=== PATIENT | female | born 1980 | race Caucasian/White ===

== ENCOUNTER 2019-08-19 21:02 | Emergency (ER) | payer BC, OTHER ==
[2019-08-19 21:36] VITALS: BP 159/100; PULSE 113
[2019-08-19] MEDS ORDERED: Ketorolac 60 MG/2 ML SDV IM ONE (22:12)
--- NOTE | 2019-08-19 22:19 | EDM.PDOC ---
ED HPI GENERAL MEDICAL PROBLEM - General Chief Complaint: Lower Extremity Injury/Pain Stated Complaint: ANKLE INJURY Time Seen by Provider: 08/19/19 21:33 Source of Information: Reports: Patient, RN Notes Reviewed History Limitations: Reports: No Limitations - History of Present Illness INITIAL COMMENTS - FREE TEXT/NARRATIVE: Patient is a 38-year-old female who presents to the ED for the evaluation of her right ankle injury. Patient states she was trying to hang some lights, and stepped on a child's plastic stepstool, when the stool collapsed from underneath of her, and she thinks that she rolled her right ankle when the stool broke. She noted immediate pain into the lateral side of her right ankle with some swelling over the lateral malleolus. She denies any numbness or tingling into her toes, and states that dorsiflexing does hurt worse than plantar flexing. Patient denies pain into her foot, but states it is very painful in her ankle and she could not really weight-bear much at all prior to coming to the ER. She did not take any sort of pain management for this at home. She has not applied any sort of ice or anything as well. Patient denies any other sick-like symptoms, she did have a temperature of 100.5F at time of ER triage but the patient does have a sunburn on her face. 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: , 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 ED EXAM, GENERAL - Physical Exam Exam: See Below Exam Limited By: No Limitations General Appearance: Alert, WD/WN, No Apparent Distress Respiratory/Chest: No Respiratory Distress, Lungs Clear, Normal Breath Sounds, No Accessory Muscle Use, Chest Non-Tender Cardiovascular: Normal Peripheral Pulses, Regular Rate, Rhythm, No Murmur Peripheral Pulses: 3+: Dorsalis Pedis (L), Dorsalis Pedis (R) Extremities: Normal Capillary Refill, Joint Swelling (over lateral right ankle), Limited Range of Motion (of right ankle) Neurological: Alert, Oriented, Normal Cognition, No Motor/Sensory Deficits Psychiatric: Normal Affect, Normal Mood Skin Exam: Warm, Dry, Intact, Normal Color, No Rash Course - Vital Signs Last Recorded V/S: Last Vital Signs Temp 100.5 F 08/19/19 21:30 Pulse 113 H 08/19/19 21:30 Resp 18 08/19/19 21:30 BP 159/100 H 08/19/19 21:30 Pulse Ox 95 08/19/19 21:30 - Orders/Labs/Meds Orders: Active Orders 24 hr Category Date Time Status Ankle Min 3V Rt [CR] Stat Exams 08/19/19 21:40 Ordered Meds: Medications Discontinued Medications Generic Name Dose Route Start Last Admin Trade Name Viniciusq PRN Reason Stop Dose Admin Ketorolac Tromethamine 60 mg 08/19/19 22:12 Toradol IM 08/19/19 22:13 ONETIME ONE - Re-Assessments/Exams Free Text/Narrative Re-Assessment/Exam: 08/19/19 22:18 Patient presents to the ED for evaluation of her right ankle injury. X-rays were obtained at time of triage, demonstrate no bony abnormalities or acute fractures appreciated. Patient will have her ankle Theodore wrapped, she will be given a 60 mg IM injection of Toradol, and discharged home. Patient states that she has crutches at home and would prefer not to get crutches at today's visit. I did tell her she will likely have to follow-up in 10 days or so if the ankle is not healing as expected. Departure - Departure Time of Disposition: 22:19 Disposition: Home, Self-Care 01 Condition: Good Clinical Impression: Moderate right ankle sprain Qualifiers: Encounter type: initial encounter Qualified Code(s): S93.401A - Sprain of unspecified ligament of right ankle, initial encounter - Discharge Information *PRESCRIPTION DRUG MONITORING PROGRAM REVIEWED*: No *COPY OF PRESCRIPTION DRUG MONITORING REPORT IN PATIENT THAIS: No Instructions: Ankle Sprain, [id number] Referrals: Marlyn Benitez MD [Primary Care Provider] - Additional Instructions: You have been evaluated in the ED for your right ankle injury. Your x-ray demonstrated no acute fracture or other bony abnormality. Please use ice as tolerated to the affected area. Please try to elevate the affected area to relieve swelling. You may use crutches to walk, if this makes the ankle pain better. However you should start trying to walk on it as much as tolerated to try to get it to heal. You may take Tylenol 500 mg or ibuprofen 600mg q6 hrs for pain relief. Please do so until you have a tolerable level of pain with activity. Do not exceed 4000mg Tylenol or 3200mg ibuprofen in a 24 hour time period. Please return to ED if your symptoms should change or worsen. Sepsis Event Note (ED) - Evaluation Sepsis Screening Result: No Definite Risk - Focused Exam Vital Signs: Vital Signs Temp Pulse Resp BP Pulse Ox 08/19/19 21:30 100.5 F 113 H 18 159/100 H 95 - My Orders Last 24 Hours: My Active Orders 08/19/19 21:40 Ankle Min 3V Rt [CR] Stat - Assessment/Plan Last 24 Hours: My Active Orders 08/19/19 21:40 Ankle Min 3V Rt [CR] Stat
--- NOTE | 2019-08-20 06:57 | CR ---
Right ankle: 4 views of the right ankle were obtained. Comparison: No prior ankle exam. Ankle mortise is symmetric. No acute fracture, dislocation or other bony abnormality is appreciated. Impression: 1. No abnormality is appreciated on right ankle exam. Diagnostic code #1 Study was dictated in MDT
== END 2019-08-19 22:30 | disposition home or self-care (01) ==
LOC: JD.ED 21:02
DX: S93.401A Sprain of unspecified ligament of right ankle, initial encounter (principal); I10 Essential (primary) hypertension; F41.9 Anxiety disorder, unspecified; Z79.899 Other long term (current) drug therapy; W22.8XXA Striking against or struck by other objects, initial encounter
CPT/HCPCS: 73610-26-RT; 73610-RT; 99283; 99283-25

== ENCOUNTER 2019-11-25 11:32 | Emergency (ER) | payer OTHER ==
[2019-11-25 11:43] VITALS: BP 152/104; PULSE 125
[2019-11-25] MEDS ORDERED: Sodium Chloride 0.9% 10 ML Syringe FLUSH PRN (12:16)
[2019-11-25] MEDS ORDERED: Ondansetron 4 MG/2 ML SDV IVPUSH ONE (12:16)
[2019-11-25] MEDS ORDERED: Sodium Chloride 0.9% 1,000 ML IV STA (12:16)
--- NOTE | 2019-11-25 12:27 | EDM.PDOC ---
ED HPI GENERAL MEDICAL PROBLEM - General Chief Complaint: Gastrointestinal Problem Stated Complaint: SKAY/POSS DEHYDRATION Time Seen by Provider: 11/25/19 11:43 Source of Information: Reports: Patient History Limitations: Reports: No Limitations - History of Present Illness INITIAL COMMENTS - FREE TEXT/NARRATIVE: The patient presents with possible dehydration. She said this started last week with nausea, diarrhea, body aches, and now generalized weakness. She also has fever and chills. She does not have a cough. 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 She has no dysuria but she is not urinating as much. She does not have asthma. The patient did have strep a few weeks ago. Onset: Gradual Duration: Week(s): Severity: Moderate Improves with: Reports: None Worsens with: Reports: None Associated Symptoms: Reports: Fever/Chills, Nausea/Vomiting. Denies: Chest Pain, Cough, Headaches, Shortness of Breath - Related Data Allergies Allergy/AdvReac Type Severity Reaction Status Date / Time No Known Allergies Allergy Verified 11/25/19 11:43 Home Meds: Home Meds Sertraline HCl 1 tab PO DAILY 10/21/15 [History] Potassium Gluconate [Potassium] 1 tab PO DAILY 08/19/19 [History] hydroCHLOROthiazide [Hydrochlorothiazide] 1 tab PO DAILY 08/19/19 [History] Past Medical History Cardiovascular History: Reports: Hypertension Other Cardiovascular History: Essential HTN Gastrointestinal History: Reports: Hemorrhoids, Other (See Below) Other Gastrointestinal History: 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: Reports: , 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: Hx SAB Psychiatric History: Reports: Anxiety Other Psychiatric History: Takes Zoloft 25mg PO Qd for anxiety with positive results - Past Surgical History HEENT Surgical History: Reports: Oral Surgery Social & Family History - Family History Family Medical History: Noncontributory - Tobacco Use Smoking Status *Q: Never Smoker Second Hand Smoke Exposure: No - Caffeine Use Caffeine Use: Reports: Coffee - Recreational Drug Use Recreational Drug Use: No ED ROS GENERAL - Review of Systems Review Of Systems: See Below Constitutional: Reports: Fever, Chills, Malaise, Weakness, Fatigue HEENT: Reports: No Symptoms Respiratory: Reports: No Symptoms Cardiovascular: Reports: No Symptoms Endocrine: Reports: Fatigue GI/Abdominal: Reports: Nausea. Denies: Abdominal Pain, Vomiting : Reports: No Symptoms ED EXAM, GI/ABD - Physical Exam Exam: See Below Exam Limited By: No Limitations General Appearance: Alert, No Apparent Distress Ears: Normal External Exam Nose: Normal Inspection Head: Atraumatic, Normocephalic Neck: Normal Inspection Respiratory/Chest: No Respiratory Distress, Lungs Clear, Normal Breath Sounds Cardiovascular: Regular Rate, Rhythm, No Edema, No Murmur GI/Abdominal Exam: Soft, Non-Tender, No Organomegaly, No Mass Course - Vital Signs Last Recorded V/S: Last Vital Signs Temp 98.2 F 11/25/19 11:41 Pulse 125 H 11/25/19 11:41 Resp 20 11/25/19 11:41 BP 152/104 H 11/25/19 11:41 Pulse Ox 91 L 11/25/19 11:41 - Orders/Labs/Meds Orders: Active Orders 24 hr Category Date Time Status Peripheral IV Care [RC] . DIRECTED Care 11/25/19 12:16 Active Sodium Chloride 0.9% [Saline Flush] Med 11/25/19 12:16 Active 10 ml FLUSH ASDIRECTED PRN ED Antiemetic Medication Reflex [OM.PC] Stat Oth 11/25/19 12:16 Ordered Peripheral IV Insertion Adult [OM.PC] Stat Oth 11/25/19 12:16 Ordered Medication Orders Sodium Chloride (Saline Flush) 10 ml FLUSH ASDIRECTED PRN PRN Reason: Keep Vein Open Last Admin: 11/25/19 12:48 Dose: 10 ml Documented by: ANNE-MARIE Labs: Laboratory Tests 11/25/19 11/25/19 11/25/19 Range/Units 12:50 12:50 12:50 WBC 3.45 L (3.98-10.04) K/mm3 RBC 4.63 (3.98-5.22) M/mm3 Hgb 12.5 D (11.2-15.7) gm/dl Hct 41.7 (34.1-44.9) % MCV 90.1 D (79.4-94.8) fl MCH 27.0 (25.6-32.2) pg MCHC 30.0 L (32.2-35.5) g/dl RDW Std Deviation 47.2 H (36.4-46.3) fL Plt Count 412 H D (182-369) K/mm3 MPV 9.4 (9.4-12.3) fl Neut % (Auto) 75.1 H (34.0-71.1) % Lymph % (Auto) 16.2 L (19.3-51.7) % [place] % (Auto) 8.1 (4.7-12.5) % Eos % (Auto) 0 L (0.7-5.8) Baso % (Auto) 0.3 (0.1-1.2) % Neut # (Auto) 2.59 (1.56-6.13) K/mm3 Lymph # (Auto) 0.56 L (1.18-3.74) K/mm3 [place] # (Auto) 0.28 (0.24-0.36) K/mm3 Eos # (Auto) 0.00 L (0.04-0.36) K/mm3 Baso # (Auto) 0.01 (0.01-0.08) K/mm3 Sodium 140 (136-145) mEq/L Potassium 3.4 L (3.5-5.1) mEq/L Chloride 101 (98-107) mEq/L Carbon Dioxide 31 (21-32) mEq/L Anion Gap 11.4 (5-15) BUN 9 (7-18) mg/dL Creatinine 0.8 (0.55-1.02) mg/dL Est Cr Clr Drug Dosing 95.24 mL/min Estimated GFR (MDRD) > 60 (>60) mL/min BUN/Creatinine Ratio 11.3 L (14-18) Glucose 107 H (74-106) mg/dL Calcium 8.6 (8.5-10.1) mg/dL Total Bilirubin 0.7 (0.2-1.0) mg/dL AST 102 H (15-37) U/L ALT 71 H (14-59) U/L Alkaline Phosphatase 74 (46-116) U/L Total Protein 7.6 (6.4-8.2) g/dl Albumin 3.6 (3.4-5.0) g/dl Globulin 4.0 gm/dL Albumin/Globulin Ratio 0.9 L (1-2) Lipase 105 (73-393) U/L HCG, Qual Negative (NEGATIVE) Urine Color (Yellow) Urine Appearance (Clear) Urine pH (5.0-8.0) Ur Specific [place] (1.005-1.030) Urine Protein (Negative) Urine Glucose (UA) (Negative) Urine Ketones (Negative) Urine Occult Blood (Negative) Urine Nitrite (Negative) Urine Bilirubin (Negative) Urine Urobilinogen (0.2-1.0) Ur Leukocyte Esterase (Negative) Urine RBC (0-5) /hpf Urine WBC (0-5) /hpf Ur Epithelial Cells (0-5) /hpf Urine Bacteria (FEW) /hpf Urine Mucus (FEW) /hpf 11/25/19 Range/Units 13:28 WBC (3.98-10.04) K/mm3 RBC (3.98-5.22) M/mm3 Hgb (11.2-15.7) gm/dl Hct (34.1-44.9) % MCV (79.4-94.8) fl MCH (25.6-32.2) pg MCHC (32.2-35.5) g/dl RDW Std Deviation (36.4-46.3) fL Plt Count (182-369) K/mm3 MPV (9.4-12.3) fl Neut % (Auto) (34.0-71.1) % Lymph % (Auto) (19.3-51.7) % [place] % (Auto) (4.7-12.5) % Eos % (Auto) (0.7-5.8) Baso % (Auto) (0.1-1.2) % Neut # (Auto) (1.56-6.13) K/mm3 Lymph # (Auto) (1.18-3.74) K/mm3 [place] # (Auto) (0.24-0.36) K/mm3 Eos # (Auto) (0.04-0.36) K/mm3 Baso # (Auto) (0.01-0.08) K/mm3 Sodium (136-145) mEq/L Potassium (3.5-5.1) mEq/L Chloride (98-107) mEq/L Carbon Dioxide (21-32) mEq/L Anion Gap (5-15) BUN (7-18) mg/dL Creatinine (0.55-1.02) mg/dL Est Cr Clr Drug Dosing mL/min Estimated GFR (MDRD) (>60) mL/min BUN/Creatinine Ratio (14-18) Glucose (74-106) mg/dL Calcium (8.5-10.1) mg/dL Total Bilirubin (0.2-1.0) mg/dL AST (15-37) U/L ALT (14-59) U/L Alkaline Phosphatase (46-116) U/L Total Protein (6.4-8.2) g/dl Albumin (3.4-5.0) g/dl Globulin gm/dL Albumin/Globulin Ratio (1-2) Lipase (73-393) U/L HCG, Qual (NEGATIVE) Urine Color Yellow (Yellow) Urine Appearance Cloudy H (Clear) Urine pH 8.5 H (5.0-8.0) Ur Specific [place] 1.015 (1.005-1.030) Urine Protein 1+ H (Negative) Urine Glucose (UA) Negative (Negative) Urine Ketones Trace H (Negative) Urine Occult Blood 3+ H (Negative) Urine Nitrite Negative (Negative) Urine Bilirubin Negative (Negative) Urine Urobilinogen 0.2 (0.2-1.0) Ur Leukocyte Esterase Negative (Negative) Urine RBC 30-40 H (0-5) /hpf Urine WBC 0-5 (0-5) /hpf Ur Epithelial Cells 0-5 (0-5) /hpf Urine Bacteria Few (FEW) /hpf Urine Mucus Few (FEW) /hpf Meds: Medications Generic Name Dose Route Start Last Admin Trade Name Francois PRN Reason Stop Dose Admin Sodium Chloride 10 ml 11/25/19 12:16 11/25/19 12:48 Saline Flush FLUSH 10 ml ASDIRECTED PRN Administration Keep Vein Open Discontinued Medications Generic Name Dose Route Start Last Admin Trade Name Francois PRN Reason Stop Dose Admin Sodium Chloride 1,000 mls @ 1,000 mls/hr 11/25/19 12:16 11/25/19 12:48 Normal Saline IV 11/25/19 13:15 1,000 mls/hr .BOLUS STA Administration Ondansetron HCl 4 mg 11/25/19 12:16 11/25/19 12:48 Zofran IVPUSH 11/25/19 12:17 Not Given ONETIME ONE - Re-Assessments/Exams Free Text/Narrative Re-Assessment/Exam: 11/25/19 13:55 I ordered a CXR, IV NS 1 L bolus, zofran 4mg IV, labs and UA. The patient did not want to be tested for COVID 19. Her CXR as read by Dr Stern shows patchy areas of mild increased density on both sides of the chest. Findings are suspicious for viral pneumonia and please rule out COVID 19. Her WBC was low at 3.45. Her K was low at 3.4. Her AST is elevated at 102. Her ALT is elevated at 71. Her lipase is normal. I am waiting for a UA. 11/25/19 14:34 Her UA shows some blood but no UTI. It appears she has COVID 19 given the x-ray results. I will have her quarantine longer. Departure - Departure Time of Disposition: 14:35 Disposition: Home, Self-Care 01 Condition: Good Clinical Impression: COVID-19, Pneumonia due to COVID-19 virus Diarrhea Qualifiers: Diarrhea type: unspecified type Qualified Code(s): R19.7 - Diarrhea, unspecified - Discharge Information *PRESCRIPTION DRUG MONITORING PROGRAM REVIEWED*: Not Applicable *COPY OF PRESCRIPTION DRUG MONITORING REPORT IN PATIENT THAIS: Not Applicable Referrals: Marlyn Benitez MD [Primary Care Provider] - 1 Week Forms: ED Department Discharge Additional Instructions: Quarantine for 10 days. Drink plenty of fluids. Take motrin or tylenol as needed for fever or pain. Please return if you are worse. Sepsis Event Note (ED) - Evaluation Sepsis Screening Result: No Definite Risk - Focused Exam Vital Signs: Vital Signs Temp Pulse Resp BP Pulse Ox 11/25/19 11:41 98.2 F 125 H 20 152/104 H 91 L - My Orders Last 24 Hours: My Active Orders 11/25/19 12:16 Peripheral IV Care [RC] . DIRECTED Sodium Chloride 0.9% [Saline Flush] 10 ml FLUSH ASDIRECTED PRN ED Antiemetic Medication Reflex [OM.PC] Stat Peripheral IV Insertion Adult [OM.PC] Stat - Assessment/Plan Last 24 Hours: My Active Orders 11/25/19 12:16 Peripheral IV Care [RC] . DIRECTED Sodium Chloride 0.9% [Saline Flush] 10 ml FLUSH ASDIRECTED PRN ED Antiemetic Medication Reflex [OM.PC] Stat Peripheral IV Insertion Adult [OM.PC] Stat
--- NOTE | 2019-11-25 13:47 | CR ---
Chest: Portable view of the chest was obtained. Comparison: Prior chest CT of 12/02/09, no prior chest x-ray is available. Findings: Patchy areas of mild increased density within both sides of the chest. Heart size and mediastinum are normal for portable technique. Bony structures are grossly intact. Impression: 1. Patchy areas of mild increased density on both sides of the chest. Findings are suspicious for viral pneumonia and please rule out Covid 19. Diagnostic code #3 This report was dictated in MDT
== END 2019-11-25 14:56 | disposition home or self-care (01) ==
LOC: JD.ED 11:32
DX: U07.1 COVID-19 (principal); J12.89 Other viral pneumonia; I10 Essential (primary) hypertension; F41.9 Anxiety disorder, unspecified; Z79.899 Other long term (current) drug therapy
CPT/HCPCS: 36415; 71045; 80053; 81001; 83690; 84703; 85025; 96360; 99285; J7030; 99283